=== PATIENT | male | born 1960 | race Caucasian/White ===

== ENCOUNTER 2019-02-17 20:35 | Emergency (ER) | payer OTHER ==
[~2019-02-17] VITALS: Ht 172.7 cm; Wt 104.4 kg
[~2019-02-17 20:35] MED LIST: HYDR25SU23 PR
[2019-02-17 20:40] VITALS: Ht 172.7 cm; Wt 104.4 kg
[2019-02-17 23:41] VITALS: BP 129/89; PULSE 76; RESP 16
== END 2019-02-17 23:57 | disposition home or self-care (01) ==
LOC: E/R 20:35
DX: K62.5 Hemorrhage of anus and rectum (principal)
CPT/HCPCS: 99284